=== PATIENT | female | born 1945 | race Caucasian/White ===

== ENCOUNTER 2019-01-16 16:13 | Emergency (ER) | payer MEDICARE ==
[~2019-01-16] VITALS: Ht 152.4 cm; Wt 44.0 kg
--- NOTE | 2019-01-16 16:43 | PHYS DOC ---
Adult General Chief Complaint Chief Complaint: NEAR SYNCOPE [facility] HPI Patient is a 73 year old female that presents to the ER stating that she fell this morning. The patient states that her legs gave way bilaterally. She says the left leg gave way first in the right leg and caused her to fall. She denies any pain or she denies anything hurting at this time has chronic tinnitus her left wrist. The patient states she hit the floor. The floor was carpeted. The patient states that she is not on any blood thinners. Negative loss of consciousness. She did state that she has felt weak all day, and that she had a syncopal episode yesterday. The patient also states that she's been having left calf pain. Denies any pain at this time. Review of Systems Review of Systems Constitutional: Reports generalized weakness. Denies fever or chills [] Eyes: Denies change in visual acuity, redness, or eye pain [] HENT: Denies nasal congestion or sore throat [] Respiratory: Denies cough or shortness of breath [] Cardiovascular: No additional information not addressed in HPI [] GI: Denies abdominal pain, nausea, vomiting, bloody stools or diarrhea [] : Denies dysuria or hematuria [] Musculoskeletal: Reports L calf pain. Integument: Denies rash or skin lesions [] Neurologic: Denies headache, focal weakness or sensory changes [] Endocrine: Denies polyuria or polydipsia [] Complete systems were reviewed and found to be within normal limits, except as documented in this note. Allergies Allergies Allergies Coded Allergies Type Severity Reaction Last Updated Verified No Known Drug Allergies 01/16/19 No Physical Exam Physical Exam Constitutional: Well developed, well nourished, no acute distress, non-toxic appearance. [] HENT: Normocephalic, atraumatic, bilateral external ears normal, oropharynx moist, no oral exudates, nose normal. [] Eyes: PERRLA, EOMI, conjunctiva normal, no discharge. [] Neck: Normal range of motion, no tenderness, supple, no stridor. [] Cardiovascular:Heart rate regular rhythm, no murmur [] Lungs & Thorax: Bilateral breath sounds clear to auscultation [] Abdomen: Bowel sounds normal, soft, no tenderness, no masses, no pulsatile masses. [] Skin: Warm, dry, no erythema, no rash. [] Back: No tenderness, no CVA tenderness. [] Extremities: No tenderness, no cyanosis, no clubbing, ROM intact, no edema. [] Neurologic: Alert and oriented X 3, normal motor function, normal sensory function, no focal deficits noted. [] Psychologic: Affect normal, judgement normal, mood normal. [] Current Patient Data Vital Signs Vital Signs Date Time Temp Pulse Resp B/P (MAP) Pulse Ox O2 Delivery O2 Flow Rate FiO2 01/16/19 16:22 98.2 72 16 137/63 (87) 98 Room Air 98.2 Lab Values Laboratory Tests Test 01/16/19 16:28 01/16/19 16:47 Urine Collection Type Unknown Urine Color Yellow Urine Clarity Clear Urine pH 6.0 Urine Specific Sargent 1.025 Urine Protein 30 mg/dL (NEG-TRACE) Urine Glucose (UA) Negative mg/dL (NEG) Urine Ketones (Stick) Negative mg/dL (NEG) Urine Blood Negative (NEG) Urine Nitrite Negative (NEG) Urine Bilirubin Negative (NEG) Urine Urobilinogen Dipstick 1.0 mg/dL (0.2 mg/dL) Urine Leukocyte Esterase Trace (NEG) Urine RBC 0 /HPF (0-2) Urine WBC Occ /HPF (0-4) Urine Squamous Epithelial Cells Few /LPF Urine Bacteria Few /HPF (0-FEW) Urine Hyaline Casts Occasional /HPF Urine Mucus Marked /LPF White Blood Count 9.4 x10^3/uL (4.0-11.0) Red Blood Count 3.23 x10^6/uL (3.50-5.40) L Hemoglobin 9.7 g/dL (12.0-15.5) L Hematocrit 29.2 % (36.0-47.0) L Mean Corpuscular Volume 90 fL (79-100) Mean Corpuscular Hemoglobin 30 pg (25-35) Mean Corpuscular Hemoglobin Concent 33 g/dL (31-37) Red Cell Distribution Width 13.5 % (11.5-14.5) Platelet Count 324 x10^3/uL (140-400) Neutrophils (%) (Auto) 75 % (31-73) H Lymphocytes (%) (Auto) 15 % (24-48) L Monocytes (%) (Auto) 9 % (0-9) Eosinophils (%) (Auto) 1 % (0-3) Basophils (%) (Auto) 0 % (0-3) Neutrophils # (Auto) 7.0 x10^3/uL (1.8-7.7) Lymphocytes # (Auto) 1.4 x10^3/uL (1.0-4.8) Monocytes # (Auto) 0.9 x10^3/uL (0.0-1.1) Eosinophils # (Auto) 0.1 x10^3/uL (0.0-0.7) Basophils # (Auto) 0.0 x10^3/uL (0.0-0.2) Sodium Level 137 mmol/L (136-145) Potassium Level 3.8 mmol/L (3.5-5.1) Chloride Level 98 mmol/L (98-107) Carbon Dioxide Level 28 mmol/L (21-32) Anion Gap 11 (6-14) Blood Urea Nitrogen 16 mg/dL (7-20) Creatinine 0.8 mg/dL (0.6-1.0) Estimated GFR (Cockcroft-Gault) 70.3 BUN/Creatinine Ratio 20 (6-20) Glucose Level 105 mg/dL (70-99) H Calcium Level 9.3 mg/dL (8.5-10.1) Magnesium Level 2.0 mg/dL (1.8-2.4) Total Bilirubin 0.4 mg/dL (0.2-1.0) Aspartate Amino Transferase (AST) 27 U/L (15-37) Alanine Aminotransferase (ALT) 23 U/L (14-59) Alkaline Phosphatase 137 U/L (46-116) H Troponin I Quantitative < 0.017 ng/mL (0.000-0.055) Total Protein 8.0 g/dL (6.4-8.2) Albumin 2.9 g/dL (3.4-5.0) L Albumin/Globulin Ratio 0.6 (1.0-1.7) L Laboratory Tests 01/16/19 16:47 Laboratory Tests 01/16/19 16:47 EKG EKG EKG interpreted by Dr. Shi Sinus rate of 72, No STEMI. Radiology/Procedures Radiology/Procedures [facility] [address] [place], [place] [id number] IMAGING REPORT Signed PATIENT: LAISHA CURIEL ACCOUNT: [id number] : 1945 LOCATION: ER AGE: 73 SEX: F EXAM STATUS: REG ER ORD. PHYSICIAN: ALANNAH WATKINS APRN REASON: syncope PROCEDURE: CHEST PA & LATERAL Study: CHEST PA LATERAL Indication: Syncope. Comparison: None. Findings: No lobar consolidation, significant pleural effusion or pneumothorax. The cardiomediastinal silhouette is within normal limits for size. Vascular calcifications at the aortic arch. Apical scarring seen on the right. No acute osseous injury is identified. Straightening of thoracic lordosis. Impression: No acute radiographic abnormality of the chest. Electronically signed by: DUANE MIRANDA MD (01/16/2019 5:21 PM) [facility] [place] DICTATED and SIGNED BY: DUANE MIRANDA MD DATE: 01/16/19 1721 [][facility] [address] [place] [address] IMAGING REPORT Signed PATIENT: LAISHA CURIEL ACCOUNT: [id number] : 1945 LOCATION: ER AGE: 73 SEX: F EXAM STATUS: REG ER ORD. PHYSICIAN: ALANNAH WATKINS APRN REASON: L calf pain PROCEDURE: VENOUS LOWER EXTREMITY LEFT Exam: Left lower extremity venous duplex study INDICATION: Left calf pain TECHNIQUE: Using a combination of real-time ultrasound imaging and color-flow and pulse Doppler imaging techniques along with graded compression and augmentation, duplex evaluation of the deep venous systems of leftlower extremity was performed. Multiple images were obtained. Findings: There is no sonographic evidence for deep venous thrombosis involving the visualized deep venous structures of the left lower extremity. IMPRESSION: No acute DVT in the left lower extremities. Electronically signed by: Tania Barajas MD (01/16/2019 5:32 PM) [facility] [place] DICTATED and SIGNED BY: TANIA BARAJAS MD DATE: 01/16/19 9122 Course & Med Decision Making Course & Med Decision Making Pertinent Labs and Imaging studies reviewed. (See chart for details) Will get venous ultrasound to rule out DVT. Will get Labs, EKG, UA, Chest x-ray. Imaging is unremarkable. Labs are unremarkable with exception of trace leukocytes in Urine. Will treat with Keflex. Dianelys Disclaimer Dianelys Disclaimer This electronic medical record was generated, in whole or in part, using a voice recognition dictation system. Departure Departure Impression: Primary Impression: Syncope Additional Impression: Urinary tract infection Disposition: HOME, SELF-CARE Condition: STABLE Referrals: JOSE L MONK MD (PCP) Patient Instructions: Syncope, Urinary Tract Infection Additional Instructions: Thank you for visiting [facility]. We appreciate you trusting us with your care. If any additional problems come up don't hesitate to return to visit us. Please follow up with your primary care provider so they can plan additional care if needed and know about the problem that you had. If symptoms worsen come back to the Emergency Department. Any concerning symptoms that start such as chest pain, shortness of air, weakness or numbness on one side of the body, running high fevers or any other concerning symptoms return to the ER. Follow up with Dr. Monk on Friday. Scripts Cephalexin (KEFLEX) 500 Mg Capsule 1 CAP PO BID for 7 Days, #14 CAP 0 Refills Prov: ALANNAH WATKINS APRN 01/16/19 Problem Qualifiers Primary Impression: Syncope Syncope type: unspecified Qualified Codes: R55 - Syncope and collapse Additional Impression: Urinary tract infection Urinary tract infection type: acute cystitis Hematuria presence: without hematuria Qualified Codes: N30.00 - Acute cystitis without hematuria ALANNAH WATKINS [employer] Jan 16, 2019 16:43
[2019-01-16 17:00] LABS: BILIRUBIN,URINE NEGATIVE (NEG); CLARITY,URINE CLEAR; COLOR,URINE YELLOW; NITRITE,URINE NEGATIVE (NEG); PROTEIN,URINE 30 mg/dL (NEG-TRACE)
[2019-01-16 17:08] LABS: CALCIUM 9.3 mg/dL (8.5-10.1); CREATININE 0.8 mg/dL (0.6-1.0); GFR 70.3; POTASSIUM 3.8 mmol/L (3.5-5.1)
[2019-01-16 17:09] LABS: BASO % 0 % (0-3); EOS # 0.1 x10^3/uL (0.0-0.7); EOS % 1 % (0-3); HEMATOCRIT 29.2 % (36.0-47.0); HEMOGLOBIN 9.7 g/dL (12.0-15.5); LYMPH # 1.4 x10^3/uL (1.0-4.8); LYMPH % 15 % (24-48); MEAN CORPUSCULAR HEMOGLOBIN 30 pg (25-35); MEAN CORPUSCULAR HGB CONC 33 g/dL (31-37); MEAN CORPUSCULAR VOLUME 90 fL (79-100); MONO # 0.9 x10^3/uL (0.0-1.1); MONO % 9 % (0-9); NEUT % 75 % (31-73); PLATELET COUNT 324 x10^3/uL (140-400); RED BLOOD COUNT 3.23 x10^6/uL (3.50-5.40); RED CELL DISTRIBUTION WIDTH 13.5 % (11.5-14.5); WHITE BLOOD COUNT 9.4 x10^3/uL (4.0-11.0)
[2019-01-16 17:14] LABS: BACTERIA,URINE FEW /HPF (0-FEW); RBC,URINE 0 /HPF (0-2); SQUAMOUS EPITHELIAL CELL,UR FEW /LPF; WBC,URINE OCC /HPF (0-4)
[2019-01-16 17:14] LABS: TOTAL BILIRUBIN 0.4 mg/dL (0.2-1.0)
[2019-01-16 17:15] LABS: HYALINE CASTS, URINE OCCASIONAL /HPF
[2019-01-16 17:23] LABS: ALBUMIN 2.9 g/dL (3.4-5.0); ALBUMIN/GLOBULIN RATIO 0.6 (1.0-1.7)
--- NOTE | 2019-01-16 17:24 | RAD ---
Study: CHEST PA LATERAL Indication: Syncope. Comparison: None. Findings: No lobar consolidation, significant pleural effusion or pneumothorax. The cardiomediastinal silhouette is within normal limits for size. Vascular calcifications at the aortic arch. Apical scarring seen on the right. No acute osseous injury is identified. Straightening of thoracic lordosis. Impression: No acute radiographic abnormality of the chest. Electronically signed by: DUANE MIRANDA MD (01/16/2019 5:21 PM) [facility] [place]
--- NOTE | 2019-01-16 17:35 | RAD ---
Exam: Left lower extremity venous duplex study INDICATION: Left calf pain TECHNIQUE: Using a combination of real-time ultrasound imaging and color-flow and pulse Doppler imaging techniques along with graded compression and augmentation, duplex evaluation of the deep venous systems of leftlower extremity was performed. Multiple images were obtained. Findings: There is no sonographic evidence for deep venous thrombosis involving the visualized deep venous structures of the left lower extremity. IMPRESSION: No acute DVT in the left lower extremities. Electronically signed by: Tania Dalal MD (01/16/2019 5:32 PM) [facility]
[2019-01-16 18:00] VITALS: BP 132/61
[2019-01-16] MEDS ORDERED: CEPH-264 PO (18:08)
--- NOTE | 2019-01-18 06:58 | EKG ---
[facility] [address] [place] [address] Test Date: 2019-01-16 Test Time: 16:40:09 Pat Name: LAISHA CURIEL Department: Room: Gender: F Medical Imaging Technician: : 1945 Requested By: ALANNAH WATKINS Order Number: [id number] Reading MD: Measurements Intervals [place] Rate: 72 P: 71 RI: 148 QRS: 54 QRSD: 76 T: 60 QT: 362 QTc: 398 Interpretive Statements SINUS RHYTHM QRS(T) CONTOUR ABNORMALITY CONSIDER ANTEROLATERAL MYOCARDIAL DAMAGE POSSIBLY ABNORMAL ECG RI6.01 No previous ECG available for comparison
== END 2019-01-16 18:13 | disposition home or self-care (01) ==
LOC: ER 16:13
DX: R55 Syncope and collapse (principal); N30.00 Acute cystitis without hematuria; R53.1 Weakness
CPT/HCPCS: 36415; 71046; 80053; 81001; 83735; 84484; 85025; 87086; 93005; 93971; 99285-25